=== PATIENT | female | born 1955 | race African-American/Black ===

== ENCOUNTER 2019-01-10 00:48 | Emergency (ER) | payer MEDICAID ==
[~2019-01-10] VITALS: Ht 170.2 cm; Wt 144.0 kg
[~2019-01-10 00:48] MED LIST: FLONASE; HUMALOG; LANTUS; LORA-250 PO; NORCO
[2019-01-10] MEDS ORDERED: CYCLOBENZAPRINE 10MG TABLET PO ONE (01:15)
[2019-01-10] MEDS ORDERED: OXYCODONE HCL 10MG TABLET SR 12HR PO ONE (02:00)
[2019-01-10] MEDS ORDERED: DIAZEPAM 5 MG TABLET PO ONE (06:00)
[2019-01-10 06:16] LABS: CLARITY URINE CLEAR (CLEAR); COLOR URINE YELLOW (YELLOW); KETONES URINE NEGATIVE (NEGATIVE); LEUKOCYTE ESTERASE URINE NEGATIVE (NEGATIVE); NITRITE URINE NEGATIVE (NEGATIVE); OCCULT BLOOD URINE 1+ (NEGATIVE); PH URINE 6.5 (4.5-8.0); PROTEIN URINE 4+ (NEGATIVE); SPECIFIC GRAVITY URINE 1.014 (1.005-1.030); UROBILINOGEN URINE 0.2 E.U./dL (0.2-1.0)
[2019-01-10 08:28] VITALS: BP 141/75
== END 2019-01-10 08:31 | disposition home or self-care (01) ==
LOC: ER 00:48
DX: M54.42 Lumbago with sciatica, left side (principal); E78.00 Pure hypercholesterolemia, unspecified; I10 Essential (primary) hypertension; E11.9 Type 2 diabetes mellitus without complications; Z90.710 Acquired absence of both cervix and uterus; Z98.890 Other specified postprocedural states; Z88.1 Allergy status to other antibiotic agents; Z91.013 Allergy to seafood; Z79.899 Other long term (current) drug therapy
CPT/HCPCS: 36415; 72100; 73502; 80048; 81003; 99284; Z7610

== ENCOUNTER 2019-01-22 18:05 | Emergency (ER) | payer MEDICARE, MEDICAID ==
[~2019-01-22] VITALS: Ht 170.2 cm; Wt 91.0 kg
[2019-01-22] MEDS ORDERED: INSULIN REGULAR (HUMULIN R) 300UNITS/3ML SUBCUT ONE (19:30)
[2019-01-22] MEDS ORDERED: OXYCODONE HCL 10MG TABLET SR 12HR PO ONE (22:15)
[2019-01-23] VITALS: BP 165/75
== END 2019-01-23 01:36 | disposition home or self-care (01) ==
LOC: ER 18:05
DX: R51 Headache (principal); E11.9 Type 2 diabetes mellitus without complications; E78.00 Pure hypercholesterolemia, unspecified; I10 Essential (primary) hypertension; Z90.710 Acquired absence of both cervix and uterus; Z88.5 Allergy status to narcotic agent; Z91.013 Allergy to seafood
CPT/HCPCS: 70450; 71045; 82962; 96372; 99284; J1815

== ENCOUNTER 2019-01-30 08:52 | Emergency (ER) | payer MEDICARE, MEDICAID ==
[~2019-01-30] VITALS: Ht 167.6 cm; Wt 82.0 kg
[2019-01-30] MEDS ORDERED: KETOROLAC 30MG/ML VIAL IV STA (10:17)
[2019-01-30 10:27] LABS: BASOPHILS % 1.2 % (0.0-2.0); EOSINOPHILS % 4.4 % (0.0-5.0); HEMATOCRIT. 36.3 % (36.0-48.0); HEMOGLOBIN. 11.2 g/dL (12.0-16.0); LYMPHOCYTES % 24.7 % (20.0-50.0); MEAN CORPUSCULAR HEMOGLOBIN 22.3 pg (28.0-32.0); MEAN CORPUSCULAR VOLUME 72.3 fL (81.0-99.0); MEAN PLATELET VOLUME 8.3 fl (7.4-10.4); MONOCYTES % 4.9 % (2.0-8.0); NEUTROPHILS % 64.8 % (40.0-76.0); PLATELET 233 x1000/uL (130-400); RED BLOOD CELL COUNT 5.01 mill/uL (4.2-5.4); RED CELL DISTRIBUTION WIDTH 22.5 % (11.6-14.6)
[2019-01-30] MEDS ORDERED: CYCLOBENZAPRINE 10MG TABLET PO ONE (10:30)
[2019-01-30 10:33] LABS: CHLORIDE 108 mEq/L (98-107)
[2019-01-30 11:01] LABS: CLARITY URINE CLEAR (CLEAR); COLOR URINE YELLOW (YELLOW); KETONES URINE NEGATIVE (NEGATIVE); LEUKOCYTE ESTERASE URINE NEGATIVE (NEGATIVE); NITRITE URINE NEGATIVE (NEGATIVE); OCCULT BLOOD URINE 1+ (NEGATIVE); PROTEIN URINE 3+ (NEGATIVE); SPECIFIC GRAVITY URINE 1.012 (1.005-1.030); UROBILINOGEN URINE 0.2 E.U./dL (0.2-1.0)
[2019-01-30 11:30] LABS: PLATELET ESTIMATE NORMAL
[2019-01-30] MEDS ORDERED: MORPHINE SULFATE 4 MG/ML CPJ (NOT FOR IM USE) IV ONE (11:30)
[2019-01-30] MEDS ORDERED: LOSARTAN POTASSIUM 50 MG TABLET PO ONE (11:30)
[2019-01-30 13:27] VITALS: BP 144/78
== END 2019-01-30 13:54 | disposition home or self-care (01) ==
LOC: ER 09:03
DX: M54.42 Lumbago with sciatica, left side (principal); N18.9 Chronic kidney disease, unspecified; E11.9 Type 2 diabetes mellitus without complications; E78.00 Pure hypercholesterolemia, unspecified; I10 Essential (primary) hypertension; Z90.710 Acquired absence of both cervix and uterus; Z88.5 Allergy status to narcotic agent; Z91.013 Allergy to seafood
CPT/HCPCS: 36415; 80053; 81003; 82962; 85025; 96374; 96375; 99283; J1885; J2270

== ENCOUNTER 2019-02-01 11:54 | Emergency (ER) | payer MEDICARE, MEDICAID ==
[~2019-02-01] VITALS: Ht 175.3 cm; Wt 120.0 kg
[2019-02-01 15:24] LABS: BASOPHILS % 1.1 % (0.0-2.0); EOSINOPHILS % 4.2 % (0.0-5.0); HEMATOCRIT. 35.6 % (36.0-48.0); LYMPHOCYTES % 28.4 % (20.0-50.0); MEAN CORPUSCULAR HEMOGLOBIN 22.2 pg (28.0-32.0); MEAN CORPUSCULAR VOLUME 71.9 fL (81.0-99.0); MEAN PLATELET VOLUME 8.2 fl (7.4-10.4); MONOCYTES % 6.7 % (2.0-8.0); NEUTROPHILS % 59.6 % (40.0-76.0); PLATELET 200 x1000/uL (130-400); RED BLOOD CELL COUNT 4.95 mill/uL (4.2-5.4); RED CELL DISTRIBUTION WIDTH 23.1 % (11.6-14.6)
[2019-02-01 15:29] LABS: CHLORIDE 109 mEq/L (98-107)
[2019-02-01 15:32] LABS: ETHANOL BLOOD < 10 mg/dL
[2019-02-01] MEDS: KETOROLAC 30MG/ML VIAL IV ONE ×2 (16:25→22:30)
[2019-02-01] MEDS: MORPHINE SULFATE 4 MG/ML CPJ (NOT FOR IM USE) IV ONE (16:25)
[2019-02-01 16:46] LABS: PROTHROMBIN TIME 10.7 sec (9.6-11.0)
[2019-02-01 16:54] LABS: CLARITY URINE CLEAR (CLEAR); COLOR URINE YELLOW (YELLOW); KETONES URINE NEGATIVE (NEGATIVE); LEUKOCYTE ESTERASE URINE NEGATIVE (NEGATIVE); NITRITE URINE NEGATIVE (NEGATIVE); OCCULT BLOOD URINE 2+ (NEGATIVE); PROTEIN URINE 4+ (NEGATIVE); SPECIFIC GRAVITY URINE 1.023 (1.005-1.030); UROBILINOGEN URINE 0.2 E.U./dL (0.2-1.0)
[2019-02-01 17:04] LABS: *AMPHETAMINES SCREEN URINE NEGATIVE (NEGATIVE); *BARBITURATES SCREEN URINE NEGATIVE (NEGATIVE); *BENZODIAZEPINES SCREEN URINE NEGATIVE (NEGATIVE); *COCAINE SCREEN URINE NEGATIVE (NEGATIVE); METHADONE URINE SCREEN NEGATIVE (NEGATIVE); OPIATES URINE SCREEN PRESUMTIVE POSITIVE (NEGATIVE)
[2019-02-01 17:05] LABS: PHENCYCLIDINE URINE SCREEN NEGATIVE (NEGATIVE)
[2019-02-01 17:12] LABS: CANNABINOID URINE SCREEN PRESUMTIVE POSITIVE (NEGATIVE)
[2019-02-01] MEDS: LOSARTAN POTASSIUM 50 MG TABLET PO ONE (22:30)
[2019-02-02] MEDS ORDERED: MORPHINE SULFATE 10 MG/ML CPJ IM ONE (07:30)
[2019-02-02] MEDS: OXYCODONE HCL/ACETAMINOPHEN 5/325MG TABLET PO ONE (07:58)
[2019-02-02 11:09] VITALS: BP 163/75
== END 2019-02-02 11:11 | disposition home or self-care (01) ==
LOC: ER 11:54
DX: M54.32 Sciatica, left side (principal); E11.9 Type 2 diabetes mellitus without complications; E78.00 Pure hypercholesterolemia, unspecified; I10 Essential (primary) hypertension; Z90.710 Acquired absence of both cervix and uterus; Z88.8 Allergy status to other drugs, medicaments and biological substances; Z79.4 Long term (current) use of insulin; Z79.899 Other long term (current) drug therapy
CPT/HCPCS: 36415; 80053; 80305; 80320; 81003; 85025; 85610; 93005; 96374; 96375; 96376; 99284; J1885; J2270; G0480

== ENCOUNTER 2019-02-05 23:54 | Emergency (ER) | payer MEDICARE, MEDICAID ==
[~2019-02-05] VITALS: Ht 170.2 cm; Wt 142.0 kg
[2019-02-06] MEDS ORDERED: HYDROCODONE/ACETAMINOPHEN 5/325MG TABLET PO STA ×2 (00:16→02:08)
[2019-02-06] MEDS ORDERED: KETOROLAC 60MG/2ML VIAL IM STA (00:16)
[2019-02-06 01:37] LABS: CLARITY URINE CLEAR (CLEAR); COLOR URINE YELLOW (YELLOW); KETONES URINE NEGATIVE (NEGATIVE); LEUKOCYTE ESTERASE URINE NEGATIVE (NEGATIVE); NITRITE URINE NEGATIVE (NEGATIVE); OCCULT BLOOD URINE 1+ (NEGATIVE); PH URINE 5.5 (4.5-8.0); PROTEIN URINE 4+ (NEGATIVE); SPECIFIC GRAVITY URINE 1.018 (1.005-1.030); UROBILINOGEN URINE 0.2 E.U./dL (0.2-1.0)
[2019-02-06 03:35] VITALS: BP 155/80
== END 2019-02-06 03:35 | disposition home or self-care (01) ==
LOC: ER 23:54
DX: M54.40 Lumbago with sciatica, unspecified side (principal); E11.9 Type 2 diabetes mellitus without complications; I10 Essential (primary) hypertension; Z90.710 Acquired absence of both cervix and uterus; Z88.5 Allergy status to narcotic agent; Z91.013 Allergy to seafood
CPT/HCPCS: 81003; 96372; 99283; J1885

== ENCOUNTER 2019-02-08 20:21 | Emergency (ER) | payer MEDICARE, MEDICAID ==
[~2019-02-08] VITALS: Ht 170.2 cm; Wt 143.0 kg
[2019-02-09] MEDS ORDERED: MORPHINE SULFATE 2 MG/ML CPJ (NOT FOR IM USE) IV ONE (03:15)
[2019-02-09 08:01] VITALS: BP 174/80
[2019-02-09 08:40] LABS: CLARITY URINE CLEAR (CLEAR); COLOR URINE YELLOW (YELLOW); KETONES URINE NEGATIVE (NEGATIVE); LEUKOCYTE ESTERASE URINE NEGATIVE (NEGATIVE); NITRITE URINE NEGATIVE (NEGATIVE); OCCULT BLOOD URINE TRACE (NEGATIVE); PH URINE 5.5 (4.5-8.0); PROTEIN URINE 3+ (NEGATIVE); UROBILINOGEN URINE 0.2 E.U./dL (0.2-1.0)
== END 2019-02-09 08:01 | disposition home or self-care (01) ==
LOC: ER 20:21
DX: M54.42 Lumbago with sciatica, left side (principal); I10 Essential (primary) hypertension; E11.9 Type 2 diabetes mellitus without complications
CPT/HCPCS: 73630; 81003; 93971; 96374; 99284; J2270

== ENCOUNTER 2019-02-10 10:07 | Emergency (ER) | payer MEDICARE, MEDICAID ==
[~2019-02-10] VITALS: Ht 170.2 cm; Wt 134.0 kg
[2019-02-10] MEDS ORDERED: ONDANSETRON 4MG ODT PO ONE (11:15)
[2019-02-10] MEDS ORDERED: MORPHINE SULFATE 10 MG/ML CPJ IM ONE (11:15)
[2019-02-10] MEDS ORDERED: POLYETHYLENE GLYCOL 3350 (17GM) 1 DOSE PACK PO ONE (12:15)
[2019-02-10 19:35] VITALS: BP 144/79
== END 2019-02-10 19:57 | disposition home or self-care (01) ==
LOC: ER 10:07
DX: M54.42 Lumbago with sciatica, left side (principal); K59.00 Constipation, unspecified; Z59.0 Homelessness
CPT/HCPCS: 96372; 99283; J2270; Q0162

== ENCOUNTER 2019-03-03 12:32 | Emergency (ER) | payer MEDICARE, MEDICAID ==
[~2019-03-03] VITALS: Ht 167.6 cm; Wt 140.0 kg
[2019-03-03] MEDS ORDERED: MORPHINE SULFATE 4 MG/ML CPJ (NOT FOR IM USE) IV STA (13:03)
[2019-03-03] MEDS ORDERED: KETOROLAC 30MG/ML VIAL IV STA (13:03)
[2019-03-03] MEDS ORDERED: ONDANSETRON HCL 4MG/2ML INJ IV STA (13:03)
[2019-03-03] MEDS ORDERED: SODIUM CHLORIDE 0.9% 1,000 ML IV ONE (13:03)
[2019-03-03 13:47] VITALS: BP 151/96
[2019-03-03] MEDS ORDERED: HYDRALAZINE 20MG/ML VIAL IV ONE (15:30)
== END 2019-03-03 18:06 | disposition home or self-care (01) ==
LOC: ER 12:32
DX: M54.40 Lumbago with sciatica, unspecified side (principal); I10 Essential (primary) hypertension; M48.00 Spinal stenosis, site unspecified
CPT/HCPCS: 72131; 96374; 96375; 99284; J0360; J1885; J2270; J2405; J7030

== ENCOUNTER 2019-03-09 15:06 | Inpatient (IN) | payer MEDICARE, MEDICAID ==
[~2019-03-09] VITALS: Ht 160 cm; Wt 141.5 kg
[2019-03-09] MEDS ORDERED: MORPHINE SULFATE 4 MG/ML CPJ (NOT FOR IM USE) IV ONE (16:45)
[2019-03-09] MEDS ORDERED: CLONIDINE 0.2MG TABLET PO ONE (16:45)
[2019-03-09] MEDS ORDERED: KETOROLAC 30MG/ML VIAL IV ONE (16:45)
[2019-03-09] MEDS ORDERED: SODIUM CHLORIDE 0.9% 500 ML IV ONE (16:45)
[2019-03-09 17:15] LABS: BASOPHILS % 0.3 % (0.0-2.0); EOSINOPHILS % 3.8 % (0.0-5.0); HEMATOCRIT. 34.3 % (36.0-48.0); HEMOGLOBIN. 10.8 g/dL (12.0-16.0); LYMPHOCYTES % 21.8 % (20.0-50.0); MEAN CORPUSCULAR HEMOGLOBIN 22.7 pg (28.0-32.0); MEAN CORPUSCULAR VOLUME 72.1 fL (81.0-99.0); MEAN PLATELET VOLUME 8.5 fl (7.4-10.4); MONOCYTES % 6.3 % (2.0-8.0); NEUTROPHILS % 67.8 % (40.0-76.0); PLATELET 196 x1000/uL (130-400); RED BLOOD CELL COUNT 4.75 mill/uL (4.2-5.4); RED CELL DISTRIBUTION WIDTH 21.7 % (11.6-14.6)
[2019-03-09 17:16] LABS: CHLORIDE 105 mEq/L (98-107)
[2019-03-09] MEDS ORDERED: ONDANSETRON HCL 4MG/2ML INJ IV PRN (21:15)
[2019-03-09] MEDS: HYDROCODONE/ACETAMINOPHEN 5/325MG TABLET PO PRN (22:11)
[2019-03-10] MEDS: LORAZEPAM 0.5MG TABLET PO PRN (03:38)
[2019-03-10 04:00] VITALS: BP 145/59
[2019-03-10] MEDS ORDERED: DEXTROSE 50% WATER 50ML SYRINGE IV PRN (04:30)
[2019-03-10 04:43] VITALS: BP 145/59
[2019-03-10] MEDS: BLOOD SUGAR DIAGNOSTIC STRIP TEST SCH ×4 (06:26→20:42)
[2019-03-10] MEDS: INSULIN LISPRO 100 UNITS/ML SUBCUT SCH ×4 (06:56→20:47)
[2019-03-10 08:00] VITALS: BP 161/88
[2019-03-10] MEDS: FOLIC ACID 1MG TABLET PO SCH (08:51)
[2019-03-10] MEDS: THIAMINE HCL 100MG TABLET PO SCH (08:51)
[2019-03-10] MEDS: ASPIRIN 81MG EC TABLET PO SCH (08:51)
[2019-03-10] MEDS ORDERED: ENOXAPARIN 30MG/0.3ML SYR SUBCUT SCH (09:00)
[2019-03-10 09:04] LABS: BASOPHILS % 0.7 % (0.0-2.0); EOSINOPHILS % 3.7 % (0.0-5.0); HEMATOCRIT. 34.1 % (36.0-48.0); HEMOGLOBIN. 10.6 g/dL (12.0-16.0); LYMPHOCYTES % 32.4 % (20.0-50.0); MEAN CORPUSCULAR HEMOGLOBIN 22.5 pg (28.0-32.0); MEAN CORPUSCULAR VOLUME 72.4 fL (81.0-99.0); MEAN PLATELET VOLUME 8.1 fl (7.4-10.4); MONOCYTES % 8.2 % (2.0-8.0); PLATELET 190 x1000/uL (130-400); RED BLOOD CELL COUNT 4.72 mill/uL (4.2-5.4); RED CELL DISTRIBUTION WIDTH 21.9 % (11.6-14.6)
[2019-03-10 09:13] LABS: PHOSPHORUS 3.1 mg/dL (2.5-4.9)
[2019-03-10] MEDS: CLONIDINE 0.1MG TABLET PO PRN ×2 (10:38→20:43)
[2019-03-10] MEDS: HYDROCODONE/ACETAMINOPHEN 5/325MG TABLET PO PRN ×2 (10:38→20:43)
[2019-03-10] MEDS ORDERED: INSULIN GLARGINE UD 100 UNITS/ML SYR SUBCUT NR (11:30)
[2019-03-10 12:00] VITALS: BP 116/72
[2019-03-10 16:00] VITALS: BP 149/94
[2019-03-10] MEDS: MORPHINE SULFATE 2 MG/ML CPJ (NOT FOR IM USE) IV PRN (17:41)
[2019-03-10] MEDS: SODIUM CHLORIDE 0.45% 1,000 ML IV SCH (18:06)
[2019-03-10 19:42] LABS: CLARITY URINE CLEAR (CLEAR); COLOR URINE YELLOW (YELLOW); KETONES URINE NEGATIVE (NEGATIVE); LEUKOCYTE ESTERASE URINE NEGATIVE (NEGATIVE); NITRITE URINE NEGATIVE (NEGATIVE); OCCULT BLOOD URINE 1+ (NEGATIVE); PH URINE 6.5 (4.5-8.0); PROTEIN URINE 4+ (NEGATIVE); SPECIFIC GRAVITY URINE 1.022 (1.005-1.030); UROBILINOGEN URINE 0.2 E.U./dL (0.2-1.0)
[2019-03-10 20:00] VITALS: BP 174/95
[2019-03-10 20:03] LABS: *BARBITURATES SCREEN URINE NEGATIVE (NEGATIVE); CANNABINOID URINE SCREEN PRESUMTIVE POSITIVE (NEGATIVE)
[2019-03-10 20:04] LABS: *AMPHETAMINES SCREEN URINE NEGATIVE (NEGATIVE); *BENZODIAZEPINES SCREEN URINE NEGATIVE (NEGATIVE); *COCAINE SCREEN URINE NEGATIVE (NEGATIVE); METHADONE URINE SCREEN NEGATIVE (NEGATIVE); OPIATES URINE SCREEN PRESUMTIVE POSITIVE (NEGATIVE); PHENCYCLIDINE URINE SCREEN NEGATIVE (NEGATIVE)
[2019-03-11] VITALS: BP_SYST 137; BP_SYST 154; BP_SYST 185; BP_DIAS 83; BP_DIAS 87; BP_DIAS 89
[2019-03-11 03:56] LABS: BASOPHILS % 1.2 % (0.0-2.0); EOSINOPHILS % 3.8 % (0.0-5.0); HEMATOCRIT. 33.2 % (36.0-48.0); HEMOGLOBIN. 10.3 g/dL (12.0-16.0); LYMPHOCYTES % 27.7 % (20.0-50.0); MEAN CORPUSCULAR HEMOGLOBIN 22.3 pg (28.0-32.0); MEAN CORPUSCULAR VOLUME 71.9 fL (81.0-99.0); MONOCYTES % 7.3 % (2.0-8.0); PLATELET 164 x1000/uL (130-400); RED BLOOD CELL COUNT 4.61 mill/uL (4.2-5.4); RED CELL DISTRIBUTION WIDTH 22.1 % (11.6-14.6)
[2019-03-11 04:00] VITALS: BP 145/81
[2019-03-11 04:12] LABS: CHLORIDE 103 mEq/L (98-107)
[2019-03-11] MEDS: SODIUM CHLORIDE 0.45% 1,000 ML IV SCH (05:52)
[2019-03-11] MEDS: BLOOD SUGAR DIAGNOSTIC STRIP TEST SCH ×4 (06:39→20:38)
[2019-03-11] MEDS: INSULIN LISPRO 100 UNITS/ML SUBCUT SCH ×4 (06:45→21:17)
[2019-03-11] MEDS: MORPHINE SULFATE 2 MG/ML CPJ (NOT FOR IM USE) IV PRN ×2 (06:59→20:47)
[2019-03-11] MEDS: DIPHENHYDRAMINE 25MG CAPSULE PO PRN (07:17)
[2019-03-11 08:00] VITALS: BP_SYST 137; BP_SYST 143; BP_SYST 159; BP_DIAS 78; BP_DIAS 79; BP_DIAS 84
[2019-03-11] MEDS: FOLIC ACID 1MG TABLET PO SCH (08:33)
[2019-03-11] MEDS: THIAMINE HCL 100MG TABLET PO SCH (08:33)
[2019-03-11] MEDS: ASPIRIN 81MG EC TABLET PO SCH (08:33)
[2019-03-11 12:00] VITALS: BP 144/68
[2019-03-11 16:00] VITALS: BP 170/78
[2019-03-11] MEDS: CLONIDINE 0.1MG TABLET PO PRN (17:15)
[2019-03-11 20:00] VITALS: BP_SYST 135; BP_SYST 140; BP_SYST 147; BP_DIAS 71; BP_DIAS 72; BP_DIAS 81
[2019-03-11] MEDS: LACTULOSE 20G/30ML UDC PO SCH (21:17)
[2019-03-12] VITALS (7 sets, daily range): BP systolic 139–191; BP diastolic 55–85
[2019-03-12] MEDS: DIPHENHYDRAMINE 25MG CAPSULE PO PRN (01:18)
[2019-03-12] MEDS: LORAZEPAM 0.5MG TABLET PO PRN (01:18)
[2019-03-12] MEDS: BLOOD SUGAR DIAGNOSTIC STRIP TEST SCH ×4 (05:47→21:00)
[2019-03-12] MEDS: LACTULOSE 20G/30ML UDC PO SCH ×3 (06:00→13:14)
[2019-03-12] MEDS: INSULIN LISPRO 100 UNITS/ML SUBCUT SCH ×4 (06:17→22:06)
[2019-03-12 07:51] LABS: BASOPHILS % 0.7 % (0.0-2.0); EOSINOPHILS % 4.6 % (0.0-5.0); HEMOGLOBIN. 10.1 g/dL (12.0-16.0); LYMPHOCYTES % 31.3 % (20.0-50.0); MEAN CORPUSCULAR HEMOGLOBIN 22.5 pg (28.0-32.0); MEAN CORPUSCULAR VOLUME 71.1 fL (81.0-99.0); MEAN PLATELET VOLUME 8.2 fl (7.4-10.4); NEUTROPHILS % 55.4 % (40.0-76.0); PLATELET 182 x1000/uL (130-400); RED CELL DISTRIBUTION WIDTH 22.2 % (11.6-14.6)
[2019-03-12] MEDS: FOLIC ACID 1MG TABLET PO SCH (08:52)
[2019-03-12] MEDS: ASPIRIN 81MG EC TABLET PO SCH (08:52)
[2019-03-12] MEDS: THIAMINE HCL 100MG TABLET PO SCH (08:52)
[2019-03-12] MEDS: CLONIDINE 0.1MG TABLET PO PRN (08:52)
[2019-03-12] MEDS: MORPHINE SULFATE 2 MG/ML CPJ (NOT FOR IM USE) IV PRN (13:20)
[2019-03-12] MEDS: AMLODIPINE 5MG TABLET PO SCH (22:05)
[2019-03-12] MEDS: INSULIN GLARGINE UD 100 UNITS/ML SYR SUBCUT SCH (22:14)
[2019-03-13] VITALS (7 sets, daily range): BP systolic 128–177; BP diastolic 68–94
[2019-03-13] MEDS: HYDROCODONE/ACETAMINOPHEN 5/325MG TABLET PO PRN (00:57)
[2019-03-13] MEDS: DIPHENHYDRAMINE 25MG CAPSULE PO PRN (04:02)
[2019-03-13] MEDS: BLOOD SUGAR DIAGNOSTIC STRIP TEST SCH ×4 (05:43→20:43)
[2019-03-13] MEDS: INSULIN LISPRO 100 UNITS/ML SUBCUT SCH ×4 (06:21→21:29)
[2019-03-13 06:56] LABS: BASOPHILS % 0.8 % (0.0-2.0); EOSINOPHILS % 3.6 % (0.0-5.0); HEMATOCRIT. 35.3 % (36.0-48.0); HEMOGLOBIN. 11.1 g/dL (12.0-16.0); LYMPHOCYTES % 30.6 % (20.0-50.0); MEAN CORPUSCULAR HEMOGLOBIN 22.6 pg (28.0-32.0); MEAN PLATELET VOLUME 8.5 fl (7.4-10.4); MONOCYTES % 6.1 % (2.0-8.0); NEUTROPHILS % 58.9 % (40.0-76.0); PLATELET 202 x1000/uL (130-400); RED BLOOD CELL COUNT 4.89 mill/uL (4.2-5.4); RED CELL DISTRIBUTION WIDTH 22.2 % (11.6-14.6)
[2019-03-13] MEDS: ASPIRIN 81MG EC TABLET PO SCH (08:41)
[2019-03-13] MEDS: AMLODIPINE 5MG TABLET PO SCH ×2 (08:42→21:30)
[2019-03-13] MEDS: FOLIC ACID 1MG TABLET PO SCH (08:42)
[2019-03-13] MEDS: THIAMINE HCL 100MG TABLET PO SCH (08:42)
[2019-03-13] MEDS: INSULIN GLARGINE UD 100 UNITS/ML SYR SUBCUT SCH ×2 (09:03→21:30)
[2019-03-13] MEDS ORDERED: NA PHOS,M-B/NA PHOS,DI-BA ENEMA 118ML PR ONE (11:15)
[2019-03-13 14:02] LABS: PLATELET ESTIMATE NORMAL
[2019-03-13] MEDS: CLONIDINE 0.1MG TABLET PO PRN (21:30)
[2019-03-13] MEDS: MORPHINE SULFATE 2 MG/ML CPJ (NOT FOR IM USE) IV PRN (21:41)
[2019-03-14] VITALS (7 sets, daily range): BP systolic 157–168; BP diastolic 69–84
[2019-03-14] MEDS: BLOOD SUGAR DIAGNOSTIC STRIP TEST SCH ×3 (06:00→17:41)
[2019-03-14] MEDS: CLONIDINE 0.1MG TABLET PO PRN (06:01)
[2019-03-14] MEDS: INSULIN LISPRO 100 UNITS/ML SUBCUT SCH ×3 (06:06→17:45)
[2019-03-14] MEDS: FOLIC ACID 1MG TABLET PO SCH (09:58)
[2019-03-14] MEDS: AMLODIPINE 5MG TABLET PO SCH (09:58)
[2019-03-14] MEDS: ASPIRIN 81MG EC TABLET PO SCH (09:58)
[2019-03-14] MEDS: THIAMINE HCL 100MG TABLET PO SCH (09:58)
[2019-03-14] MEDS: LORAZEPAM 0.5MG TABLET PO PRN (09:58)
[2019-03-14] MEDS: INSULIN GLARGINE UD 100 UNITS/ML SYR SUBCUT SCH (09:59)
[2019-03-14] MEDS: MORPHINE SULFATE 2 MG/ML CPJ (NOT FOR IM USE) IV PRN (12:29)
== END 2019-03-14 18:15 | DRG 73 ==
LOC: ER 15:06 → 6EST 19:59 → EDBEDREQTM 20:22 → EDBEDREQ 20:22 → ENRESERV 03-10 02:05 → 8WST 03-10 03:29
PROVIDERS: ADMIT Internal Medicine Nephrology; ATTEND Internal Medicine Nephrology
DX: G90.8 Other disorders of autonomic nervous system (principal); E43 Unspecified severe protein-calorie malnutrition; I13.0 Hypertensive heart and chronic kidney disease with heart failure and stage 1 through stage 4 chronic kidney disease, or unspecified chronic kidney disease; N17.9 Acute kidney failure, unspecified; I50.32 Chronic diastolic (congestive) heart failure; Z68.43 Body mass index [BMI] 50.0-59.9, adult; E11.22 Type 2 diabetes mellitus with diabetic chronic kidney disease; D64.9 Anemia, unspecified; E11.65 Type 2 diabetes mellitus with hyperglycemia; W18.39XA Other fall on same level, initial encounter; N18.3 Chronic kidney disease, stage 3 (moderate); E66.01 Morbid (severe) obesity due to excess calories; S70.01XA Contusion of right hip, initial encounter; M54.30 Sciatica, unspecified side; Z88.8 Allergy status to other drugs, medicaments and biological substances; Z91.013 Allergy to seafood; Z79.4 Long term (current) use of insulin; Z79.899 Other long term (current) drug therapy; Z90.710 Acquired absence of both cervix and uterus; Z71.3 Dietary counseling and surveillance; Y93.89 Activity, other specified; Y92.89 Other specified places as the place of occurrence of the external cause; Y99.8 Other external cause status
CPT/HCPCS: 36415; 73502; 80048; 80305; 82570; 82962; 83735; 84100; 84156; 84443; 84484; 93005; 93306; 93970; 96361; 96374; 97116; 97162; 97530; 99285; J1650; J1815; J2270; J7040; Q0163

== ENCOUNTER 2019-09-18 19:29 | Inpatient (IN) | payer MEDICARE, MEDICAID ==
[~2019-09-18] VITALS: Ht 170.2 cm; Wt 154.4 kg
[2019-09-18 23:54] LABS: HEMATOCRIT. 31.9 % (36.0-48.0); HEMOGLOBIN. 9.7 g/dL (12.0-16.0); MEAN CORPUSCULAR HEMOGLOBIN 22.3 pg (28.0-32.0); MEAN CORPUSCULAR VOLUME 73.1 fL (81.0-99.0); PLATELET 226 x1000/uL (130-400); RED BLOOD CELL COUNT 4.37 mill/uL (4.2-5.4); RED CELL DISTRIBUTION WIDTH 21.9 % (11.6-14.6)
[2019-09-18 23:59] LABS: CHLORIDE 111 mEq/L (98-107)
[2019-09-19] MEDS ORDERED: FUROSEMIDE 40MG/4ML VIAL IV ONE (03:00)
[2019-09-19 04:24] LABS: PLATELET ESTIMATE NORMAL
[2019-09-19] MEDS: CLONIDINE 0.1MG TABLET PO PRN ×2 (06:46→11:29)
[2019-09-19] MEDS ORDERED: DEXTROSE 50% WATER 50ML SYRINGE IV PRN (10:45)
[2019-09-19] MEDS ORDERED: CLONIDINE 0.1MG TABLET PO PRN (10:45)
[2019-09-19] MEDS ORDERED: BENZONATATE 100MG CAPSULE PO PRN (10:45)
[2019-09-19] MEDS: FUROSEMIDE 40MG/4ML VIAL IVP SCH (11:29)
[2019-09-19] MEDS ORDERED: AMLODIPINE 10MG TABLET PO SCH (11:30)
[2019-09-19] MEDS: GUAIFENESIN 600MG ER TABLET PO SCH (11:42)
[2019-09-19] MEDS ORDERED: ENOXAPARIN 40MG/0.4ML SYR SUBCUT SCH (12:00)
[2019-09-19] MEDS: BLOOD SUGAR DIAGNOSTIC STRIP TEST SCH ×2 (13:00→21:00)
[2019-09-19] MEDS: INSULIN LISPRO 100 UNITS/ML SUBCUT SCH (13:20)
[2019-09-19 20:31] VITALS: BP 159/58
[2019-09-20] MEDS: DILTIAZEM HCL 60MG TABLET PO SCH ×3 (00:11→12:18)
[2019-09-20] MEDS: GUAIFENESIN 600MG ER TABLET PO SCH ×3 (00:11→21:20)
[2019-09-20] MEDS: ENOXAPARIN 40MG/0.4ML SYR SUBCUT SCH ×3 (00:12→21:19)
[2019-09-20] MEDS: INSULIN LISPRO 100 UNITS/ML SUBCUT SCH ×6 (00:13→21:17)
[2019-09-20 00:32] VITALS: BP 128/74
[2019-09-20] MEDS: IPRATROPIUM/ALBUTEROL 0.5-3(2.5)MG/3ML NEB HHN PRN (02:13)
[2019-09-20 04:45] VITALS: BP 149/54
[2019-09-20] MEDS ORDERED: AMLO5TAB88 MT (05:32)
[2019-09-20] MEDS ORDERED: TIZA2CAP7 MT (05:32)
[2019-09-20] MEDS ORDERED: FOLI-43 MT (05:32)
[2019-09-20] MEDS ORDERED: GABA-529 PO (05:32)
[2019-09-20] MEDS ORDERED: ASPI-1497 MT (05:32)
[2019-09-20] MEDS: BLOOD SUGAR DIAGNOSTIC STRIP TEST SCH ×4 (07:20→21:19)
[2019-09-20 08:00] VITALS: BP 141/63
[2019-09-20] MEDS: FUROSEMIDE 40MG/4ML VIAL IVP SCH (09:16)
[2019-09-20 10:58] LABS: BASOPHILS % 0.7 % (0.0-2.0); EOSINOPHILS % 3.8 % (0.0-5.0); HEMATOCRIT. 30.5 % (36.0-48.0); HEMOGLOBIN. 9.2 g/dL (12.0-16.0); LYMPHOCYTES % 16.8 % (20.0-50.0); MEAN CORPUSCULAR HEMOGLOBIN 22.3 pg (28.0-32.0); MEAN CORPUSCULAR VOLUME 73.9 fL (81.0-99.0); MEAN PLATELET VOLUME 8.1 fl (7.4-10.4); MONOCYTES % 5.4 % (2.0-8.0); NEUTROPHILS % 73.3 % (40.0-76.0); PLATELET 206 x1000/uL (130-400); RED BLOOD CELL COUNT 4.13 mill/uL (4.2-5.4); RED CELL DISTRIBUTION WIDTH 21.4 % (11.6-14.6)
[2019-09-20 12:00] VITALS: BP 160/6
[2019-09-20 16:00] VITALS: BP 155/75
[2019-09-20] MEDS: DILTIAZEM HCL 90MG TABLET PO SCH ×2 (18:05→21:20)
[2019-09-20 20:00] VITALS: BP 122/50
[2019-09-20] MEDS: INSULIN GLARGINE UD 100 UNITS/ML SYR SUBCUT SCH (21:18)
[2019-09-20] MEDS: ONDANSETRON HCL 4MG/2ML INJ IV PRN (22:48)
[2019-09-21] VITALS (7 sets, daily range): BP systolic 122–163; BP diastolic 52–64
[2019-09-21] MEDS: DILTIAZEM HCL 90MG TABLET PO SCH ×3 (05:30→18:20)
[2019-09-21] MEDS: BLOOD SUGAR DIAGNOSTIC STRIP TEST SCH ×4 (05:30→21:28)
[2019-09-21] MEDS: ONDANSETRON HCL 4MG/2ML INJ IV PRN (05:32)
[2019-09-21 08:02] LABS: EOSINOPHILS % 3.4 % (0.0-5.0); HEMATOCRIT. 28.3 % (36.0-48.0); HEMOGLOBIN. 8.8 g/dL (12.0-16.0); LYMPHOCYTES % 21.8 % (20.0-50.0); MEAN CORPUSCULAR HEMOGLOBIN 22.7 pg (28.0-32.0); MEAN CORPUSCULAR VOLUME 73.2 fL (81.0-99.0); MEAN PLATELET VOLUME 8.2 fl (7.4-10.4); MONOCYTES % 7.1 % (2.0-8.0); NEUTROPHILS % 66.7 % (40.0-76.0); PLATELET 191 x1000/uL (130-400); RED BLOOD CELL COUNT 3.86 mill/uL (4.2-5.4); RED CELL DISTRIBUTION WIDTH 21.5 % (11.6-14.6)
[2019-09-21] MEDS: INSULIN LISPRO 100 UNITS/ML SUBCUT SCH ×4 (08:43→21:28)
[2019-09-21] MEDS: ENOXAPARIN 40MG/0.4ML SYR SUBCUT SCH ×2 (08:46→21:27)
[2019-09-21] MEDS: FUROSEMIDE 40MG/4ML VIAL IVP SCH (08:46)
[2019-09-21] MEDS: GUAIFENESIN 600MG ER TABLET PO SCH ×2 (08:46→21:28)
[2019-09-21] MEDS: INSULIN GLARGINE UD 100 UNITS/ML SYR SUBCUT SCH ×2 (10:27→21:28)
[2019-09-21] MEDS: CLONIDINE 0.1MG TABLET PO PRN (21:28)
[2019-09-21] MEDS: IPRATROPIUM/ALBUTEROL 0.5-3(2.5)MG/3ML NEB HHN PRN (21:57)
[2019-09-22] VITALS: BP 125/76
[2019-09-22] MEDS: DILTIAZEM HCL 90MG TABLET PO SCH ×3 (01:29→12:56)
[2019-09-22] MEDS: IPRATROPIUM/ALBUTEROL 0.5-3(2.5)MG/3ML NEB HHN PRN ×3 (02:28→11:41)
[2019-09-22] MEDS: ONDANSETRON HCL 4MG/2ML INJ IV PRN (03:39)
[2019-09-22 04:00] VITALS: BP 170/62
[2019-09-22] MEDS: BLOOD SUGAR DIAGNOSTIC STRIP TEST SCH ×2 (06:30→12:47)
[2019-09-22] MEDS: INSULIN LISPRO 100 UNITS/ML SUBCUT SCH ×2 (07:50→12:59)
[2019-09-22 08:00] VITALS: BP 166/61
[2019-09-22] MEDS: FUROSEMIDE 40MG/4ML VIAL IVP SCH (09:44)
[2019-09-22] MEDS: ENOXAPARIN 40MG/0.4ML SYR SUBCUT SCH (09:44)
[2019-09-22] MEDS: GUAIFENESIN 600MG ER TABLET PO SCH (09:44)
[2019-09-22] MEDS: CLONIDINE 0.1MG TABLET PO PRN (10:34)
[2019-09-22] MEDS: INSULIN GLARGINE UD 100 UNITS/ML SYR SUBCUT SCH (10:39)
[2019-09-22 12:00] VITALS: BP 155/96
== END 2019-09-22 15:10 | DRG 291 ==
LOC: ER 19:29 → 6WST 09-19 01:16 → EDBEDREQTM 09-19 01:18 → EDBEDREQ 09-19 01:18 → ENRESERV 09-19 19:43 → 6WST 09-21 20:43
PROVIDERS: ADMIT Internal Medicine Nephrology; ATTEND Internal Medicine
DX: I13.0 Hypertensive heart and chronic kidney disease with heart failure and stage 1 through stage 4 chronic kidney disease, or unspecified chronic kidney disease (principal); I50.33 Acute on chronic diastolic (congestive) heart failure; E43 Unspecified severe protein-calorie malnutrition; N18.4 Chronic kidney disease, stage 4 (severe); J98.11 Atelectasis; Z68.43 Body mass index [BMI] 50.0-59.9, adult; J06.9 Acute upper respiratory infection, unspecified; J40 Bronchitis, not specified as acute or chronic; D64.9 Anemia, unspecified; E66.01 Morbid (severe) obesity due to excess calories; E87.8 Other disorders of electrolyte and fluid balance, not elsewhere classified; F12.90 Cannabis use, unspecified, uncomplicated; E11.22 Type 2 diabetes mellitus with diabetic chronic kidney disease; G47.30 Sleep apnea, unspecified; Z88.8 Allergy status to other drugs, medicaments and biological substances; Z91.013 Allergy to seafood; Z71.3 Dietary counseling and surveillance; Z79.899 Other long term (current) drug therapy
CPT/HCPCS: 36415; 71045; 71250; 80048; 80053; 82962; 83605; 83880; 84484; 85025; 93005; 93306; 94640; 96372; 96374; 96376; 97116; 97162; 99285; J1650; J1815; J1940; J2405; J7620

== ENCOUNTER 2021-07-05 01:27 | Emergency (ER) | payer MEDICARE, MEDICAID ==
[~2021-07-05] VITALS: Ht 170.2 cm; Wt 136.0 kg
[~2021-07-05 01:27] MED LIST changes: +AMLO5TAB88 MT; +ASPI-1497 MT; +FOLI-43 MT; +GABA-529 PO; +TIZA2CAP7 MT
[2021-07-05 02:00] VITALS: BP 120/84
== END 2021-07-05 02:45 | disposition home or self-care (01) ==
LOC: ER 01:49
DX: K59.00 Constipation, unspecified (principal); I11.0 Hypertensive heart disease with heart failure; I50.9 Heart failure, unspecified; E11.9 Type 2 diabetes mellitus without complications; J44.1 Chronic obstructive pulmonary disease with (acute) exacerbation; Z88.5 Allergy status to narcotic agent; Z91.018 Allergy to other foods; Z79.82 Long term (current) use of aspirin; Z79.899 Other long term (current) drug therapy
CPT/HCPCS: 93005; 99283

== ENCOUNTER 2021-07-10 22:48 | Emergency (ER) | payer MEDICARE, MEDICAID ==
[~2021-07-10] VITALS: Ht 170.2 cm; Wt 112.0 kg
[2021-07-10] MEDS ORDERED: NA PHOS,M-B/NA PHOS,DI-BA ENEMA 118ML PR ONE (23:15)
[2021-07-11] MEDS ORDERED: NA PHOS,M-B/NA PHOS,DI-BA ENEMA 118ML PR NR
[2021-07-11] MEDS ORDERED: DOCU-138 MT (00:26)
[2021-07-11] MEDS ORDERED: NA PHOS,M-B/NA PHOS,DI-BA ENEMA 118ML PR ONE (00:30)
[2021-07-11 11:55] VITALS: BP 165/87
== END 2021-07-11 12:27 | disposition home or self-care (01) ==
LOC: ER 22:48
DX: K59.00 Constipation, unspecified (principal); I13.2 Hypertensive heart and chronic kidney disease with heart failure and with stage 5 chronic kidney disease, or end stage renal disease; N18.6 End stage renal disease; I50.9 Heart failure, unspecified; E11.22 Type 2 diabetes mellitus with diabetic chronic kidney disease; Z99.2 Dependence on renal dialysis; J44.9 Chronic obstructive pulmonary disease, unspecified; J45.909 Unspecified asthma, uncomplicated; Z79.84 Long term (current) use of oral hypoglycemic drugs; Z79.899 Other long term (current) drug therapy
CPT/HCPCS: 99283

== ENCOUNTER 2022-06-25 16:02 | Inpatient (IN) | payer MEDICARE, MEDICAID ==
[~2022-06-25] VITALS: Ht 170.2 cm; Wt 137.9 kg
[~2022-06-25 16:02] MED LIST changes: +DOCU-138 MT
[2022-06-25 18:27] LABS: EOSINOPHILS % 3.5 % (0.0-5.0); HEMATOCRIT. 41.1 % (36.0-48.0); HEMOGLOBIN. 12.9 g/dL (12.0-16.0); LYMPHOCYTES % 19.3 % (20.0-50.0); MEAN CORPUSCULAR HEMOGLOBIN 26.3 pg (28.0-32.0); MEAN CORPUSCULAR VOLUME 83.7 fL (81.0-99.0); MONOCYTES % 6.7 % (2.0-8.0); NEUTROPHILS % 69.5 % (40.0-76.0); RED BLOOD CELL COUNT 4.91 mill/uL (4.2-5.4); RED CELL DISTRIBUTION WIDTH 22.2 % (11.6-14.6)
[2022-06-25 18:29] LABS: CHLORIDE 104 mEq/L (98-107)
[2022-06-25 19:04] LABS: MEAN PLATELET VOLUME 8.3 fl (7.4-10.4); PLATELET 177 x1000/uL (130-400)
[2022-06-25 19:05] LABS: PLATELET ESTIMATE NORMAL
[2022-06-25] MEDS ORDERED: AMLODIPINE 5MG TABLET PO ONE (22:30)
[2022-06-25] MEDS ORDERED: LORAZEPAM 2MG/ML CPJ IV PRN (23:15)
[2022-06-25] MEDS ORDERED: ONDANSETRON HCL 4MG/2ML INJ IV PRN (23:15)
[2022-06-25] MEDS ORDERED: ACETAMINOPHEN 325MG TABLET PO PRN (23:15)
[2022-06-25] MEDS ORDERED: DOCUSATE SODIUM 100MG CAPSULE PO PRN (23:15)
[2022-06-25] MEDS ORDERED: HYDROCODONE/APAP 7.5/325MG 1 TAB TABLET PO PRN (23:15)
[2022-06-26 00:30] VITALS: BP 210/90
[2022-06-26] MEDS: CLONIDINE 0.1MG TABLET PO PRN ×2 (00:43→07:57)
[2022-06-26] MEDS ORDERED: DEXTROSE 50% WATER 50ML SYRINGE IV PRN (02:45)
[2022-06-26] MEDS: BLOOD SUGAR DIAGNOSTIC STRIP TEST SCH ×4 (06:50→21:53)
[2022-06-26 07:20] LABS: BASOPHILS % 0.8 % (0.0-2.0); EOSINOPHILS % 4.1 % (0.0-5.0); HEMATOCRIT. 40.7 % (36.0-48.0); HEMOGLOBIN. 12.6 g/dL (12.0-16.0); LYMPHOCYTES % 18.2 % (20.0-50.0); MEAN CORPUSCULAR HEMOGLOBIN 26.1 pg (28.0-32.0); MEAN CORPUSCULAR VOLUME 84.4 fL (81.0-99.0); MEAN PLATELET VOLUME 7.8 fl (7.4-10.4); MONOCYTES % 7.9 % (2.0-8.0); PLATELET 144 x1000/uL (130-400); RED BLOOD CELL COUNT 4.83 mill/uL (4.2-5.4); RED CELL DISTRIBUTION WIDTH 22.1 % (11.6-14.6)
[2022-06-26 08:00] VITALS: BP 218/97
[2022-06-26 08:13] LABS: PHOSPHORUS 3.6 mg/dL (2.5-4.9)
[2022-06-26] MEDS: ASPIRIN 81MG EC TABLET PO SCH (08:29)
[2022-06-26] MEDS: THIAMINE HCL 100MG TABLET PO SCH (08:29)
[2022-06-26] MEDS: ENOXAPARIN 40MG/0.4ML SYR SUBCUT SCH (08:30)
[2022-06-26] MEDS: INSULIN LISPRO 100 UNITS/ML SUBCUT SCH ×4 (08:32→22:04)
[2022-06-26 12:00] VITALS: BP 169/97
[2022-06-26 16:00] VITALS: BP 153/51
[2022-06-26 16:10] LABS: CREATINE KINASE MB FRACTION 2.4 ng/mL (0.5-3.6)
[2022-06-26] MEDS ORDERED: NALOXONE HCL 0.4MG/ML VIAL IV PRN (18:15)
[2022-06-26 20:00] VITALS: BP 184/64
[2022-06-26] MEDS: HYDRALAZINE HCL 50MG TABLET PO SCH (22:01)
[2022-06-26 22:27] LABS: PROTHROMBIN TIME 10.7 sec (9.6-11.0)
[2022-06-26 22:41] LABS: CREATINE KINASE MB FRACTION 2.8 ng/mL (0.5-3.6)
[2022-06-27] VITALS (21 sets, daily range): BP systolic 117–221; BP diastolic 50–84
[2022-06-27] MEDS: HYDRALAZINE HCL 50MG TABLET PO SCH (05:37)
[2022-06-27] MEDS: BLOOD SUGAR DIAGNOSTIC STRIP TEST SCH ×2 (06:09→13:38)
[2022-06-27] MEDS ORDERED: LIDOCAINE HCL/PF 1% 10 MG/ML 5ML VIAL ONE ×2 (07:04→07:38)
[2022-06-27] MEDS ORDERED: FENTANYL CITRATE/PF 50MCG/ML 2ML VIAL ONE (07:04)
[2022-06-27] MEDS ORDERED: HEPARIN 1000 UNITS/ML 10ML ONE (07:24)
[2022-06-27] MEDS ORDERED: CEFAZOLIN 1000MG PREMIX 50 ML IV NR (08:00)
[2022-06-27] MEDS ORDERED: IOHEXOL-300 50 ML BOTTLE IV ONE (08:02)
[2022-06-27] MEDS ORDERED: FENTANYL CITRATE/PF 50MCG/ML 2ML VIAL IV ONE (08:15)
[2022-06-27] MEDS: INSULIN LISPRO 100 UNITS/ML SUBCUT SCH ×2 (09:08→13:38)
[2022-06-27] MEDS: ENOXAPARIN 40MG/0.4ML SYR SUBCUT SCH (09:09)
[2022-06-27] MEDS: THIAMINE HCL 100MG TABLET PO SCH (09:09)
[2022-06-27] MEDS: ASPIRIN 81MG EC TABLET PO SCH (09:09)
[2022-06-27] MEDS: CLONIDINE 0.1MG TABLET PO PRN (09:10)
[2022-06-27] MEDS ORDERED: AMLODIPINE 10MG TABLET PO SCH (09:30)
[2022-06-27] MEDS: HYDRALAZINE HCL 100MG TABLET PO SCH ×2 (09:32→14:00)
[2022-06-27] MEDS ORDERED: HYDR100T26 PO (13:17)
[2022-06-27] MEDS ORDERED: ATORVASTATIN CALCIUM 40MG TABLET PO SCH (21:00)
== END 2022-06-27 18:00 | disposition home or self-care (01) | DRG 304 ==
LOC: ER 16:02 → ENRESERV 23:15 → 7WST 23:47
PROVIDERS: ADMIT Internal Medicine Nephrology; ATTEND Internal Medicine Nephrology
PROC: 5A1D70Z Performance of Urinary Filtration, Intermittent, Less than 6 Hours Per Day (ICD-10-PCS; 2022-06-26)
PROC: 0J2SXYZ Change Other Device in Head and Neck Subcutaneous Tissue and Fascia, External Approach (ICD-10-PCS; principal; 2022-06-27)
PROC: 5A1D70Z Performance of Urinary Filtration, Intermittent, Less than 6 Hours Per Day (ICD-10-PCS; 2022-06-27)
DX: I16.0 Hypertensive urgency (principal); N18.6 End stage renal disease; T82.41XA Breakdown (mechanical) of vascular dialysis catheter, initial encounter; E44.1 Mild protein-calorie malnutrition; Z68.42 Body mass index [BMI] 45.0-49.9, adult; I50.30 Unspecified diastolic (congestive) heart failure; Z20.822 Contact with and (suspected) exposure to COVID-19; I13.2 Hypertensive heart and chronic kidney disease with heart failure and with stage 5 chronic kidney disease, or end stage renal disease; I25.10 Atherosclerotic heart disease of native coronary artery without angina pectoris; J44.9 Chronic obstructive pulmonary disease, unspecified; E11.22 Type 2 diabetes mellitus with diabetic chronic kidney disease; E11.65 Type 2 diabetes mellitus with hyperglycemia; E66.01 Morbid (severe) obesity due to excess calories; R07.89 Other chest pain; Z87.891 Personal history of nicotine dependence; Z99.2 Dependence on renal dialysis; Z88.8 Allergy status to other drugs, medicaments and biological substances; Z79.899 Other long term (current) drug therapy; Y83.8 Other surgical procedures as the cause of abnormal reaction of the patient, or of later complication, without mention of misadventure at the time of the procedure; Y92.89 Other specified places as the place of occurrence of the external cause
CPT/HCPCS: 36415; 36581; 71045; 77001; 80048; 80053; 82550; 82553; 82962; 83036; 83735; 83880; 84100; 84484; 85025; 87426; 93005; 93306; 99152; 99153; 99285; C1750; C1769; J0690; J1644; J1650; J1815; J2060; J3010; J3490; Q9967; G0500

== ENCOUNTER 2024-04-23 20:24 | Inpatient (IN) | payer MEDICARE, MEDICAID ==
[~2024-04-23] VITALS: Ht 170.2 cm; Wt 118.4 kg
[~2024-04-23 20:24] MED LIST changes: +ALBU18HF2 IH; +AMLO10TA80 PO; +ASPI-1160 PO; +ASPI-864 PO; +FOLI-43 PO; +GLIP10TA10 PO; +HYDR100T26 PO; +HYDR25TA78 PO; +INSASP SUBCUT; +METO25TA6 PO; +METO5TAB2 PO; +NITR0.4T49 SL; +SEMA0.258 SUBCUT; +SEVE800T8 PO
[2024-04-23 20:29] VITALS: O2SAT 98
[2024-04-23] MEDS: ACETAMINOPHEN 325MG TABLET PO STA (21:56)
[2024-04-23] MEDS: ASPIRIN 81MG TABLET PO ONE (21:57)
[2024-04-23 23:04] LABS: BASOPHILS % 0.8 % (0.0-2.0); EOSINOPHILS % 3.2 % (0.0-5.0); HEMATOCRIT. 35.2 % (36.0-48.0); HEMOGLOBIN. 11.2 g/dL (12.0-16.0); LYMPHOCYTES % 18.1 % (20.0-50.0); MEAN CORPUSCULAR HEMOGLOBIN 25.8 pg (28.0-32.0); MEAN CORPUSCULAR HGB CONC 31.8 g/dL (31.0-37.0); MEAN CORPUSCULAR VOLUME 81.1 fL (81.0-99.0); MEAN PLATELET VOLUME 8.4 fl (7.4-10.4); MONOCYTES % 13.7 % (2.0-8.0); NEUTROPHILS % 64.2 % (40.0-76.0); PLATELET 116 x1000/uL (130-400); RED BLOOD CELL COUNT 4.34 mill/uL (4.2-5.4); RED CELL DISTRIBUTION WIDTH 23.7 % (11.6-14.6); WHITE BLOOD COUNT 4.2 x1000/uL (4.5-11.0)
[2024-04-23 23:05] LABS: ADD RBC MORPHOLOGY YES; DIFFERENTIAL COMMENT 1
[2024-04-23 23:14] LABS: CHLORIDE 102 mEq/L (98-107); POTASSIUM 4.3 mEq/L (3.5-5.1); SODIUM 137 mEq/L (136-145)
[2024-04-23 23:15] LABS: CALCIUM 9.4 mg/dL (8.7-10.4); CARBON DIOXIDE 30 mEq/L (21-32)
[2024-04-23] MEDS: ACETAMINOPHEN 325MG TABLET PO ONE (23:15)
[2024-04-23 23:20] LABS: GLUCOSE 171 mg/dL (70-105); UREA NITROGEN BLOOD 36 mg/dL (9-23)
[2024-04-23 23:21] LABS: ANISOCYTOSIS 2+; PLATELET ESTIMATE DECREASED; TROPONIN I HIGH SENSITIVITY 33 ng/L (3.0-34)
[2024-04-23 23:22] LABS: CREATININE 5.9 mg/dL (0.6-1.0)
[2024-04-24] MEDS: HYDRALAZINE 20MG/ML VIAL IV ONE (04:30)
[2024-04-24] MEDS ORDERED: MAGNESIUM/ALUMINUM HYDROXIDE/SIMETHICONE 30ML UDC PO PRN (05:00)
[2024-04-24] MEDS ORDERED: HYDROCODONE/ACETAMINOPHEN 5/325MG TABLET PO PRN (05:00)
[2024-04-24] MEDS ORDERED: DOCUSATE SODIUM 100MG CAPSULE PO PRN (05:00)
[2024-04-24] MEDS ORDERED: ACETAMINOPHEN 325MG TABLET PO PRN (05:00)
[2024-04-24] MEDS ORDERED: ONDANSETRON HCL 4MG/2ML INJ IV PRN (05:00)
[2024-04-24] MEDS ORDERED: NALOXONE HCL 0.4MG/ML VIAL IV PRN (05:30)
[2024-04-24] MEDS ORDERED: HYDR50TA39 PO (05:31)
[2024-04-24] MEDS: HYDRALAZINE HCL 50MG TABLET PO SCH (06:00)
[2024-04-24] MEDS ORDERED: DEXTROSE 50% WATER 50ML SYRINGE IV PRN (06:15)
[2024-04-24] MEDS: HYDRALAZINE HCL 25MG TABLET PO SCH (07:35)
[2024-04-24] MEDS: IBUPROFEN 600MG TABLET PO NR (07:36)
[2024-04-24] MEDS: INSULIN LISPRO 100 UNITS/ML SUBCUT SCH (08:20)
[2024-04-24] MEDS: BLOOD SUGAR DIAGNOSTIC STRIP TEST SCH (08:23)
[2024-04-24] MEDS: AMLODIPINE 10MG TABLET PO SCH (08:37)
[2024-04-24] MEDS: ASPIRIN 81MG EC TABLET PO SCH (08:37)
[2024-04-24] MEDS ORDERED: LIDOCAINE HCL 1% 10 MG/ML 10ML VIAL ONE (09:12)
[2024-04-24] MEDS: CLONIDINE 0.1MG TABLET PO PRN (11:04)
[2024-04-24 11:12] VITALS: BP 167/38; PULSE 79; RESP 18; TEMP 36.7516
[2024-04-24] MEDS ORDERED: CALC667T2 PO (11:42)
[2024-04-24] MEDS ORDERED: SEMA0.258 (11:42)
[2024-04-24] MEDS ORDERED: GLIP10TA10 PO (11:42)
[2024-04-24 12:00] VITALS: BP 108/68; PULSE 72; RESP 19; TEMP 36.16956; O2SAT 100
[2024-04-24 16:00] VITALS: BP 117/45; PULSE 65; RESP 17; TEMP 36.05844; O2SAT 98
[2024-04-24 20:00] VITALS: BP 170/63; PULSE 71; RESP 19; TEMP 36.50292; O2SAT 98
[2024-04-24 20:59] LABS: HEMATOCRIT 35.1 % (36.0-48.0); HEMOGLOBIN 10.9 g/dL (12.0-16.0); MEAN CORPUSCULAR HEMOGLOBIN 25.4 pg (28.0-32.0); MEAN CORPUSCULAR VOLUME 82.1 fL (81.0-99.0); PLATELET 134 x1000/uL (130-400); RED BLOOD CELL COUNT 4.28 mill/uL (4.2-5.4); RED CELL DISTRIBUTION WIDTH 23.9 % (11.6-14.6)
[2024-04-24 21:10] LABS: CARBON DIOXIDE 27 mEq/L (21-32)
[2024-04-24 21:11] LABS: CALCIUM 9.6 mg/dL (8.7-10.4)
[2024-04-24 21:14] LABS: IRON 49 ug/dL (50-170)
[2024-04-24 21:17] LABS: CREATINE KINASE 84 IU/L (34-145); PHOSPHORUS 5.3 mg/dL (2.5-4.9); TOTAL IRON BINDING CAPACITY 238 ug/dl (250-425); TROPONIN I HIGH SENSITIVITY 30 ng/L (3.0-34)
[2024-04-24 21:18] LABS: FERRITIN 1474 ng/mL (10-291)
[2024-04-24 21:19] LABS: FOLIC ACID (FOLATE) SERUM 7.53 ng/mL (>5.38); VITAMIN B12 SERUM 635 pg/mL (211-911)
[2024-04-24 21:29] LABS: GLUCOSE 228 mg/dL (70-105)
[2024-04-24 21:30] LABS: CREATINE KINASE MB FRACTION 3.1 ng/mL (0.5-3.6); TROPONIN I HIGH SENSITIVITY 28 ng/L (3.0-34); UREA NITROGEN BLOOD 41 mg/dL (9-23)
[2024-04-24 21:31] LABS: ALANINE AMINOTRANSFERASE < 7 IU/L (10-49); ALBUMIN 3.9 g/dL (3.2-4.8); ASPARTATE AMINOTRANSFERASE 15 IU/L (<34); CHLORIDE 102 mEq/L (98-107); CREATINE KINASE 82 IU/L (34-145); POTASSIUM 4.7 mEq/L (3.5-5.1); SODIUM 135 mEq/L (136-145)
[2024-04-24 21:32] LABS: BILIRUBIN TOTAL 0.3 mg/dL (0.1-1.0); PROTEIN TOTAL 7.2 g/dL (6.0-8.3)
[2024-04-24 21:34] LABS: CREATININE 6.3 mg/dL (0.6-1.0)
[2024-04-24] MEDS: MELATONIN 3MG TABLET PO PRN (22:17)
[2024-04-24] MEDS: FAMOTIDINE 20MG TABLET PO SCH (22:18)
[2024-04-24] MEDS: IPRATROPIUM/ALBUTEROL 0.5-3(2.5)MG/3ML NEB HHN PRN (22:20)
[2024-04-24 22:21] VITALS: PULSE 71; RESP 18
[2024-04-25 03:51] VITALS: PULSE 78; RESP 18
[2024-04-25 08:00] VITALS: BP 168/88; PULSE 72; RESP 19; TEMP 36.05844; O2SAT 95
[2024-04-25] MEDS: PANTOT AC/MIN OIL/PET HY-PHL OINT (AQUAPHOR) TOP SCH (11:00)
[2024-04-25 12:00] VITALS: BP 104/50; PULSE 72; RESP 18; TEMP 36.114; O2SAT 95
[2024-04-25 15:25] LABS: POTASSIUM 4.7 mEq/L (3.5-5.1)
[2024-04-25 15:26] LABS: CALCIUM 9.8 mg/dL (8.7-10.4)
[2024-04-25 15:33] LABS: CREATINE KINASE MB FRACTION 3.2 ng/mL (0.5-3.6)
[2024-04-25 15:37] LABS: T4 FREE 1.17 ng/dL (0.89-1.76); THYROID STIMULATING HORMONE 0.62 uIU/mL (0.55-4.78)
[2024-04-25 15:44] LABS: CREATININE 6.6 mg/dL (0.6-1.0)
[2024-04-25 16:00] VITALS: BP 139/46; PULSE 73; RESP 15; TEMP 36.44736; O2SAT 100
[2024-04-25 16:19] LABS: BASOPHILS % 0.9 % (0.0-2.0); EOSINOPHILS % 4.2 % (0.0-5.0); HEMATOCRIT. 36.5 % (36.0-48.0); HEMOGLOBIN. 11.2 g/dL (12.0-16.0); LYMPHOCYTES % 16.7 % (20.0-50.0); MEAN CORPUSCULAR HEMOGLOBIN 24.9 pg (28.0-32.0); MEAN CORPUSCULAR HGB CONC 30.6 g/dL (31.0-37.0); MEAN CORPUSCULAR VOLUME 81.3 fL (81.0-99.0); MEAN PLATELET VOLUME 8.5 fl (7.4-10.4); MONOCYTES % 12.1 % (2.0-8.0); NEUTROPHILS % 66.1 % (40.0-76.0); PLATELET 137 x1000/uL (130-400); RED BLOOD CELL COUNT 4.49 mill/uL (4.2-5.4); RED CELL DISTRIBUTION WIDTH 23.9 % (11.6-14.6)
[2024-04-25 16:24] LABS: DIFFERENTIAL COMMENT 1
[2024-04-25 20:00] VITALS: BP 180/77; PULSE 78; RESP 19; TEMP 36.44736; O2SAT 100
[2024-04-25] MEDS: IBUPROFEN 600MG TABLET PO PRN (21:40)
[2024-04-25] MEDS: GUAIFENESIN 200MG/10ML SUGAR FREE UDC PO PRN (23:20)
[2024-04-26] VITALS (7 sets, daily range): BP systolic 95–184; BP diastolic 45–80; PULSE 66–87; RESP 18–20; TEMP 30.558–36.6696; O2SAT 98–100
[2024-04-27] VITALS (14 sets, daily range): BP systolic 117–170; BP diastolic 48–86; PULSE 72–85; RESP 16–20; TEMP 35.78064–36.55848; O2SAT 95–100
[2024-04-27] MEDS: ACETAMINOPHEN 325MG TABLET PO PRN (04:00)
[2024-04-27 12:35] LABS: BASOPHILS % 1.2 % (0.0-2.0); EOSINOPHILS % 4.7 % (0.0-5.0); HEMOGLOBIN. 10.1 g/dL (12.0-16.0); LYMPHOCYTES % 16.7 % (20.0-50.0); MEAN CORPUSCULAR HEMOGLOBIN 24.9 pg (28.0-32.0); MEAN CORPUSCULAR HGB CONC 30.7 g/dL (31.0-37.0); MEAN CORPUSCULAR VOLUME 81.1 fL (81.0-99.0); MEAN PLATELET VOLUME 8.5 fl (7.4-10.4); MONOCYTES % 10.6 % (2.0-8.0); NEUTROPHILS % 66.8 % (40.0-76.0); PLATELET 147 x1000/uL (130-400); RED BLOOD CELL COUNT 4.07 mill/uL (4.2-5.4); RED CELL DISTRIBUTION WIDTH 23.6 % (11.6-14.6); WHITE BLOOD COUNT 4.1 x1000/uL (4.5-11.0)
[2024-04-27 12:42] LABS: DIFFERENTIAL COMMENT 1
[2024-04-27 12:44] LABS: POTASSIUM 4.1 mEq/L (3.5-5.1)
[2024-04-27 12:46] LABS: CALCIUM 9.1 mg/dL (8.7-10.4)
[2024-04-27] MEDS: NIFEDIPINE XL 60MG TAB PO SCH (12:58)
[2024-04-27 12:59] LABS: CREATININE 5.7 mg/dL (0.6-1.0)
[2024-04-27] MEDS: ENOXAPARIN 40MG/0.4ML SYR SUBCUT SCH (17:23)
[2024-04-28] VITALS: BP 151/48; PULSE 86; RESP 19; TEMP 36.72516; O2SAT 98
[2024-04-28] MEDS: PREDNISONE 10MG TABLET PO SCH (01:13)
[2024-04-28 04:00] VITALS: PULSE 92; RESP 19; TEMP 36.61404; O2SAT 99
[2024-04-28 07:15] LABS: POTASSIUM 5.1 mEq/L (3.5-5.1)
[2024-04-28 07:17] LABS: CALCIUM 9.1 mg/dL (8.7-10.4)
[2024-04-28 07:45] LABS: BASOPHILS % 0.9 % (0.0-2.0); EOSINOPHILS % 0.8 % (0.0-5.0); HEMATOCRIT. 33.4 % (36.0-48.0); HEMOGLOBIN. 10.3 g/dL (12.0-16.0); LYMPHOCYTES % 9.2 % (20.0-50.0); MEAN CORPUSCULAR HEMOGLOBIN 25.1 pg (28.0-32.0); MEAN CORPUSCULAR HGB CONC 30.9 g/dL (31.0-37.0); MEAN CORPUSCULAR VOLUME 81.1 fL (81.0-99.0); MEAN PLATELET VOLUME 8.6 fl (7.4-10.4); MONOCYTES % 2.8 % (2.0-8.0); NEUTROPHILS % 86.3 % (40.0-76.0); PLATELET 153 x1000/uL (130-400); RED BLOOD CELL COUNT 4.12 mill/uL (4.2-5.4); RED CELL DISTRIBUTION WIDTH 24.1 % (11.6-14.6); WHITE BLOOD COUNT 4.7 x1000/uL (4.5-11.0)
[2024-04-28 07:58] LABS: ADD RBC MORPHOLOGY NO; DIFFERENTIAL COMMENT 1
[2024-04-28 08:00] VITALS: BP 160/62; PULSE 91; RESP 20; TEMP 36.61404; O2SAT 95
[2024-04-28] MEDS ORDERED: IBUP-2029 PO (11:19)
[2024-04-28] MEDS ORDERED: PRED10TA23 PO (11:30)
[2024-04-28 12:00] VITALS: BP 179/67; PULSE 87; RESP 20; TEMP 36.55848; O2SAT 98
[2024-04-28 16:00] VITALS: BP 139/53; PULSE 80; RESP 20; TEMP 36.3918; O2SAT 100
[2024-04-28 20:00] VITALS: BP 177/63; PULSE 85; RESP 18; TEMP 36.72516; O2SAT 99
[2024-04-29] VITALS (11 sets, daily range): BP systolic 123–178; BP diastolic 46–82; PULSE 76–91; RESP 16–20; TEMP 35.89176–36.78072; O2SAT 95–100
[2024-04-29] MEDS: DIPHENHYDRAMINE 25MG CAPSULE PO NR (05:03)
[2024-04-29 06:22] LABS: BASOPHILS % 0.5 % (0.0-2.0); EOSINOPHILS % 0.1 % (0.0-5.0); HEMOGLOBIN. 10.5 g/dL (12.0-16.0); LYMPHOCYTES % 12.4 % (20.0-50.0); MEAN CORPUSCULAR HGB CONC 30.9 g/dL (31.0-37.0); MEAN CORPUSCULAR VOLUME 81.1 fL (81.0-99.0); MEAN PLATELET VOLUME 8.6 fl (7.4-10.4); MONOCYTES % 3.9 % (2.0-8.0); NEUTROPHILS % 83.1 % (40.0-76.0); PLATELET 194 x1000/uL (130-400); RED BLOOD CELL COUNT 4.19 mill/uL (4.2-5.4); RED CELL DISTRIBUTION WIDTH 24.7 % (11.6-14.6); WHITE BLOOD COUNT 4.4 x1000/uL (4.5-11.0)
[2024-04-29 06:39] LABS: POTASSIUM 5.3 mEq/L (3.5-5.1)
[2024-04-29 06:41] LABS: CALCIUM 9.1 mg/dL (8.7-10.4)
[2024-04-29 06:45] LABS: CREATININE 7.8 mg/dL (0.6-1.0)
[2024-04-29 08:26] LABS: DIFFERENTIAL COMMENT 1
[2024-04-29 16:17] LABS: HEPATITIS B SURFACE ANTIGEN NEGATIVE (Negative)
[2024-04-29 16:37] LABS: HEPATITIS A AB IGM NEGATIVE (Negative)
[2024-04-29 16:38] LABS: HEPATITIS B CORE AB IGM NEGATIVE (Negative); HEPATITIS C AB NON REACTIVE (Neg) (Negative)
[2024-04-29] MEDS: ENOXAPARIN 30MG/0.3ML SYR SUBCUT SCH (18:03)
[2024-04-30] VITALS: BP 168/65; PULSE 84; RESP 19; TEMP 36.114; O2SAT 100
[2024-04-30 04:00] VITALS: BP 143/49; PULSE 79; RESP 19; TEMP 36.00288; O2SAT 98
[2024-04-30 08:00] VITALS: BP 145/67; PULSE 78; RESP 18; TEMP 36.28068; O2SAT 98
[2024-04-30 08:15] LABS: CREATININE 6.6 mg/dL (0.6-1.0)
[2024-04-30 08:29] LABS: HEMATOCRIT. 31.1 % (36.0-48.0); HEMOGLOBIN. 9.7 g/dL (12.0-16.0); MEAN CORPUSCULAR HEMOGLOBIN 25.3 pg (28.0-32.0); MEAN CORPUSCULAR HGB CONC 31.2 g/dL (31.0-37.0); MEAN CORPUSCULAR VOLUME 81.2 fL (81.0-99.0); MEAN PLATELET VOLUME 8.4 fl (7.4-10.4); PLATELET 171 x1000/uL (130-400); RED BLOOD CELL COUNT 3.83 mill/uL (4.2-5.4); RED CELL DISTRIBUTION WIDTH 23.8 % (11.6-14.6); WHITE BLOOD COUNT 3.9 x1000/uL (4.5-11.0)
[2024-04-30 08:50] LABS: DIFFERENTIAL COMMENT 1
[2024-04-30] MEDS: INSULIN LISPRO 100 UNITS/ML SUBCUT SCH (08:54)
[2024-04-30 10:27] VITALS: BP 145/67; PULSE 78; RESP 18; TEMP 36.28068; O2SAT 98
[2024-04-30 15:22] LABS: PLATELET ESTIMATE NORMAL
[2024-05-02] MEDS ORDERED: PREDNISONE 10MG TABLET PO SCH (09:00)
== END 2024-04-30 10:00 | disposition home or self-care (01) | DRG 557 ==
LOC: ER 20:24 → EDBEDREQTM 04-24 03:54 → EDBEDREQ 04-24 03:54 → 7EST 04-24 10:28 → MERGE 04-24 10:28
PROVIDERS: ADMIT Internal Medicine; ATTEND Internal Medicine
PROC: 05HY33Z Insertion of Infusion Device into Upper Vein, Percutaneous Approach (ICD-10-PCS; principal; 2024-04-24)
PROC: B54MZZA Ultrasonography of Right Upper Extremity Veins, Guidance (ICD-10-PCS; 2024-04-24)
PROC: 5A1D70Z Performance of Urinary Filtration, Intermittent, Less than 6 Hours Per Day (ICD-10-PCS; 2024-04-26)
PROC: 5A1D70Z Performance of Urinary Filtration, Intermittent, Less than 6 Hours Per Day (ICD-10-PCS; 2024-04-27)
PROC: 5A1D70Z Performance of Urinary Filtration, Intermittent, Less than 6 Hours Per Day (ICD-10-PCS; 2024-04-29)
DX: M75.31 Calcific tendinitis of right shoulder (principal); N18.6 End stage renal disease; I13.2 Hypertensive heart and chronic kidney disease with heart failure and with stage 5 chronic kidney disease, or end stage renal disease; D61.818 Other pancytopenia; I50.30 Unspecified diastolic (congestive) heart failure; Z68.41 Body mass index [BMI] 40.0-44.9, adult; W05.0XXA Fall from non-moving wheelchair, initial encounter; I16.0 Hypertensive urgency; E11.22 Type 2 diabetes mellitus with diabetic chronic kidney disease; E11.42 Type 2 diabetes mellitus with diabetic polyneuropathy; I34.0 Nonrheumatic mitral (valve) insufficiency; J44.89 Other specified chronic obstructive pulmonary disease; M17.0 Bilateral primary osteoarthritis of knee; L85.3 Xerosis cutis; E66.01 Morbid (severe) obesity due to excess calories; M20.42 Other hammer toe(s) (acquired), left foot; M16.0 Bilateral primary osteoarthritis of hip; M19.022 Primary osteoarthritis, left elbow; M19.021 Primary osteoarthritis, right elbow; M19.012 Primary osteoarthritis, left shoulder; M19.011 Primary osteoarthritis, right shoulder; M20.41 Other hammer toe(s) (acquired), right foot; E78.5 Hyperlipidemia, unspecified; L84 Corns and callosities; R26.9 Unspecified abnormalities of gait and mobility; Z79.899 Other long term (current) drug therapy; Z99.2 Dependence on renal dialysis; Z88.1 Allergy status to other antibiotic agents; Z99.3 Dependence on wheelchair; Z83.3 Family history of diabetes mellitus; Z91.013 Allergy to seafood; Z88.5 Allergy status to narcotic agent; Y93.89 Activity, other specified; Y92.89 Other specified places as the place of occurrence of the external cause; Y99.8 Other external cause status; Z87.891 Personal history of nicotine dependence; Z88.8 Allergy status to other drugs, medicaments and biological substances; Z82.49 Family history of ischemic heart disease and other diseases of the circulatory system
CPT/HCPCS: 36415; 36573; 71045; 73030; 73630; 80048; 80053; 80061; 82040; 82550; 82553; 82607; 82728; 82746; 82962; 83036; 83540; 83550; 83880; 83970; 84075; 84100; 84145; 84439; 84443; 84484; 85025; 85027; 85379; 86705; 86709; 87340; 90935; 93005; 93880; 93970; 94640; 97162; 97166; 97535; 99285; C1725; J1650; J1815; J3490; J7512; Q0163

== ENCOUNTER 2024-09-10 20:56 | Inpatient (IN) | payer MEDICARE, MEDICAID ==
[~2024-09-10] VITALS: Ht 165.1 cm; Wt 79.8 kg
[~2024-09-10 20:56] MED LIST changes: -ALBU18HF2 IH; +ALBU18HF2 PO; -AMLO5TAB88 MT; -ASPI-1160 PO; -ASPI-1497 MT; +CEPH500T MT; -DOCU-138 MT; -FLONASE; -FOLI-43 MT; -FOLI-43 PO; -GABA-529 PO; -GLIP10TA10 PO; +GLIP10TA17 PO; -HUMALOG; -HYDR100T26 PO; -LANTUS; -LORA-250 PO; -METO25TA6 PO; -METO5TAB2 PO; -NITR0.4T49 SL; -NORCO; +OZEMPIC SQ; -SEMA0.258 SUBCUT; -TIZA2CAP7 MT
[2024-09-10] MEDS ORDERED: DICYCLOMINE 10 MG/5 ML ORAL SYR PO STA (21:05)
[2024-09-11] MEDS: MAGNESIUM/ALUMINUM HYDROXIDE/SIMETHICONE 30ML UDC PO STA (03:01)
[2024-09-11] MEDS: MAGNESIUM/ALUMINUM HYDROXIDE/SIMETHICONE 30ML UDC PO NR (03:01)
[2024-09-11] MEDS: DICYCLOMINE HCL 10MG CAPSULE PO NR (03:01)
[2024-09-11 06:30] LABS: BASOPHILS % 1.5 % (0.0-2.0); EOSINOPHILS % 3.7 % (0.0-5.0); HEMATOCRIT. 36.7 % (36.0-48.0); HEMOGLOBIN. 11.2 g/dL (12.0-16.0); LYMPHOCYTES % 17.8 % (20.0-50.0); MEAN CORPUSCULAR HEMOGLOBIN 24.5 pg (28.0-32.0); MEAN CORPUSCULAR HGB CONC 30.5 g/dL (31.0-37.0); MEAN CORPUSCULAR VOLUME 80.2 fL (81.0-99.0); MEAN PLATELET VOLUME 8.3 fl (7.4-10.4); MONOCYTES % 9.9 % (2.0-8.0); NEUTROPHILS % 67.1 % (40.0-76.0); PLATELET 189 x1000/uL (130-400); RED BLOOD CELL COUNT 4.58 mill/uL (4.2-5.4); RED CELL DISTRIBUTION WIDTH 24.6 % (11.6-14.6); WHITE BLOOD COUNT 5.5 x1000/uL (4.5-11.0)
[2024-09-11 06:32] LABS: ADD RBC MORPHOLOGY YES; DIFFERENTIAL COMMENT 1
[2024-09-11 06:40] LABS: PROTHROMBIN TIME 10.9 sec (9.6-11.0)
[2024-09-11 07:02] LABS: POTASSIUM 4.4 mEq/L (3.5-5.1)
[2024-09-11 07:03] LABS: CALCIUM 9.5 mg/dL (8.7-10.4)
[2024-09-11 07:22] LABS: CREATININE 6.4 mg/dL (0.6-1.0)
[2024-09-11 07:30] LABS: ANISOCYTOSIS 4+; PLATELET ESTIMATE NORMAL
[2024-09-11] MEDS ORDERED: DOCUSATE SODIUM 100MG CAPSULE PO PRN (08:15)
[2024-09-11] MEDS ORDERED: ACETAMINOPHEN 325MG TABLET PO PRN (08:15)
[2024-09-11] MEDS ORDERED: ONDANSETRON HCL 4MG/2ML INJ IV PRN (08:15)
[2024-09-11] MEDS ORDERED: DEXTROSE 50% WATER 50ML SYRINGE IV PRN (08:30)
[2024-09-11 08:37] LABS: CLARITY URINE CLEAR (CLEAR); COLOR URINE YELLOW (YELLOW); PH URINE >=9.0 (4.5-8.0); SPECIFIC GRAVITY URINE 1.013 (1.005-1.030)
[2024-09-11 08:38] LABS: GLUCOSE URINE NEGATIVE (NEGATIVE); KETONES URINE NEGATIVE (NEGATIVE); LEUKOCYTE ESTERASE URINE NEGATIVE (NEGATIVE); NITRITE URINE NEGATIVE (NEGATIVE); OCCULT BLOOD URINE NEGATIVE (NEGATIVE); PROTEIN URINE 3+ (NEGATIVE); UROBILINOGEN URINE 0.2 E.U./dL (0.2-1.0)
[2024-09-11 08:42] LABS: BACTERIA URINE FEW; RBC URINE 0-2 /hpf (0-2); SQUAMOUS EPITHELIAL CELL URINE FEW /lpf (RARE/1+); WBC URINE 0-2 /hpf (0-2); YEAST URINE NONE SEEN
[2024-09-11 13:00] VITALS: BP 137/82; PULSE 86; RESP 18; TEMP 36.8072
[2024-09-11 14:12] LABS: *AMPHETAMINES SCREEN URINE NEGATIVE (NEGATIVE); *BARBITURATES SCREEN URINE NEGATIVE (NEGATIVE); *BENZODIAZEPINES SCREEN URINE NEGATIVE (NEGATIVE)
[2024-09-11 14:13] LABS: *COCAINE SCREEN URINE NEGATIVE (NEGATIVE)
[2024-09-11 14:14] LABS: CANNABINOID URINE SCREEN NEGATIVE (NEGATIVE); ECSTASY MDMA SCREEN URINE NEGATIVE (NEGATIVE); METHADONE URINE SCREEN NEGATIVE (NEGATIVE); OPIATES URINE SCREEN NEGATIVE (NEGATIVE); PHENCYCLIDINE URINE SCREEN NEGATIVE (NEGATIVE)
[2024-09-11 15:30] VITALS: BP 201/48; PULSE 76; RESP 18; TEMP 36.61404; O2SAT 100
[2024-09-11 15:48] LABS: TRIGLYCERIDE 99 mg/dL (0-150)
[2024-09-11 15:49] LABS: LDL CHOLESTEROL 86 mg/dL (5-100)
[2024-09-11 15:50] LABS: ALANINE AMINOTRANSFERASE 41 IU/L (10-49); ALBUMIN 3.9 g/dL (3.2-4.8); ASPARTATE AMINOTRANSFERASE 34 IU/L (<34); BILIRUBIN DIRECT 0.2 mg/dL (<=3.0); BILIRUBIN TOTAL 0.4 mg/dL (0.1-1.0); CHOLESTEROL 146 mg/dL (<200); HDL CHOLESTEROL 34 mg/dL (>65); PHOSPHORUS 4.6 mg/dL (2.5-4.9); PROTEIN TOTAL 7.3 g/dL (6.0-8.3)
[2024-09-11] MEDS: INSULIN LISPRO 100 UNITS/ML SUBCUT SCH (17:16)
[2024-09-11] MEDS: BLOOD SUGAR DIAGNOSTIC STRIP TEST SCH (17:16)
[2024-09-11 20:00] VITALS: BP 193/73; PULSE 78; RESP 19; TEMP 35.78064; O2SAT 98
[2024-09-11] MEDS: HYDRALAZINE HCL 50MG TABLET PO SCH (20:41)
[2024-09-11] MEDS: LORAZEPAM 0.5MG TABLET PO PRN (20:42)
[2024-09-11] MEDS: ENOXAPARIN 30MG/0.3ML SYR SUBCUT SCH (20:46)
[2024-09-11] MEDS: IPRATROPIUM/ALBUTEROL 0.5-3(2.5)MG/3ML NEB HHN PRN (22:15)
[2024-09-11 22:18] VITALS: PULSE 76; RESP 17; O2SAT 96
[2024-09-11] MEDS: CLONIDINE 0.1MG TABLET PO PRN (22:33)
[2024-09-12] VITALS (11 sets, daily range): BP systolic 110–219; BP diastolic 35–77; PULSE 65–78; RESP 18–20; TEMP 36.114–36.78072; O2SAT 96–100
[2024-09-12] MEDS: HYDRALAZINE HCL 10MG TABLET PO NR (01:06)
[2024-09-12 08:01] LABS: POTASSIUM 5.2 mEq/L (3.5-5.1)
[2024-09-12] MEDS: PANTOPRAZOLE 40MG DR TABLET PO SCH (08:12)
[2024-09-12 08:15] LABS: EOSINOPHILS % 3.6 % (0.0-5.0); HEMATOCRIT. 33.8 % (36.0-48.0); HEMOGLOBIN. 10.4 g/dL (12.0-16.0); LYMPHOCYTES % 10.4 % (20.0-50.0); MEAN CORPUSCULAR HEMOGLOBIN 24.9 pg (28.0-32.0); MEAN CORPUSCULAR HGB CONC 30.9 g/dL (31.0-37.0); MEAN CORPUSCULAR VOLUME 80.7 fL (81.0-99.0); MEAN PLATELET VOLUME 8.2 fl (7.4-10.4); PLATELET 170 x1000/uL (130-400); RED BLOOD CELL COUNT 4.18 mill/uL (4.2-5.4); RED CELL DISTRIBUTION WIDTH 23.9 % (11.6-14.6)
[2024-09-12] MEDS: NIFEDIPINE XL 30MG TAB PO SCH (08:24)
[2024-09-12 08:34] LABS: DIFFERENTIAL COMMENT 1
[2024-09-12 08:48] LABS: CREATININE 7.1 mg/dL (0.6-1.0)
[2024-09-12] MEDS: HYDRALAZINE 20MG/ML VIAL IV PRN (20:12)
[2024-09-13] VITALS: BP 103/63; PULSE 74; RESP 18; TEMP 37.16964; O2SAT 96
[2024-09-13 00:17] VITALS: PULSE 76; RESP 18; O2SAT 97
[2024-09-13 04:00] VITALS: BP 188/59; PULSE 80; RESP 18; TEMP 37.11408; O2SAT 100
[2024-09-13 08:00] VITALS: BP 130/45; PULSE 79; RESP 18; TEMP 37.11408; O2SAT 95
[2024-09-13 12:00] VITALS: BP 181/45; PULSE 72; RESP 18; TEMP 36.61404; O2SAT 98
[2024-09-13 13:15] LABS: BASOPHILS % 0.8 % (0.0-2.0); EOSINOPHILS % 2.1 % (0.0-5.0); HEMATOCRIT. 33.4 % (36.0-48.0); HEMOGLOBIN. 10.2 g/dL (12.0-16.0); LYMPHOCYTES % 9.5 % (20.0-50.0); MEAN CORPUSCULAR HEMOGLOBIN 24.7 pg (28.0-32.0); MEAN CORPUSCULAR HGB CONC 30.7 g/dL (31.0-37.0); MEAN CORPUSCULAR VOLUME 80.3 fL (81.0-99.0); MEAN PLATELET VOLUME 8.5 fl (7.4-10.4); MONOCYTES % 8.4 % (2.0-8.0); NEUTROPHILS % 79.2 % (40.0-76.0); PLATELET 162 x1000/uL (130-400); RED BLOOD CELL COUNT 4.15 mill/uL (4.2-5.4); RED CELL DISTRIBUTION WIDTH 24.2 % (11.6-14.6); WHITE BLOOD COUNT 7.7 x1000/uL (4.5-11.0)
[2024-09-13 13:25] LABS: DIFFERENTIAL COMMENT 1
[2024-09-13] MEDS ORDERED: HYDR50TA39 PO (14:24)
[2024-09-13] MEDS ORDERED: NIFE-33 PO (14:24)
[2024-09-13 16:43] LABS: POTASSIUM 4.8 mEq/L (3.5-5.1)
[2024-09-13 16:44] LABS: CALCIUM 9.1 mg/dL (8.7-10.4)
[2024-09-13 16:54] LABS: CREATININE 6.7 mg/dL (0.6-1.0)
[2024-09-13 20:00] VITALS: BP 179/64; PULSE 80; RESP 18; TEMP 36.6696; O2SAT 98
[2024-09-13] MEDS: DOXAZOSIN MESYLATE 4MG TABLET PO SCH (23:18)
[2024-09-14] VITALS (16 sets, daily range): BP systolic 112–184; BP diastolic 44–77; PULSE 68–79; RESP 18–19; TEMP 36.33624–36.83628; O2SAT 96–100
[2024-09-14] MEDS: GUAIFENESIN 200MG/10ML SUGAR FREE UDC PO PRN (00:49)
[2024-09-14] MEDS: ACETAMINOPHEN 325MG TABLET PO PRN (10:42)
== END 2024-09-14 21:47 | disposition home or self-care (01) | DRG 640 ==
LOC: ER 21:10 → EDBEDREQTM 09-11 06:03 → EDBEDREQ 09-11 06:03 → ER 09-11 13:22 → 8WST 09-11 13:42
PROVIDERS: ADMIT Internal Medicine; ATTEND Internal Medicine
PROC: 5A1D70Z Performance of Urinary Filtration, Intermittent, Less than 6 Hours Per Day (ICD-10-PCS; principal; 2024-09-12)
PROC: 5A1D70Z Performance of Urinary Filtration, Intermittent, Less than 6 Hours Per Day (ICD-10-PCS; 2024-09-14)
DX: E87.70 Fluid overload, unspecified (principal); N18.6 End stage renal disease; N39.0 Urinary tract infection, site not specified; I16.1 Hypertensive emergency; R18.8 Other ascites; I12.0 Hypertensive chronic kidney disease with stage 5 chronic kidney disease or end stage renal disease; I25.10 Atherosclerotic heart disease of native coronary artery without angina pectoris; J44.89 Other specified chronic obstructive pulmonary disease; K21.9 Gastro-esophageal reflux disease without esophagitis; K40.90 Unilateral inguinal hernia, without obstruction or gangrene, not specified as recurrent; D63.1 Anemia in chronic kidney disease; E11.22 Type 2 diabetes mellitus with diabetic chronic kidney disease; E66.9 Obesity, unspecified; G89.29 Other chronic pain; Z79.899 Other long term (current) drug therapy; Z88.8 Allergy status to other drugs, medicaments and biological substances; Z88.1 Allergy status to other antibiotic agents; Z91.013 Allergy to seafood; Z99.2 Dependence on renal dialysis; Z99.3 Dependence on wheelchair; Z68.29 Body mass index [BMI] 29.0-29.9, adult
CPT/HCPCS: 36415; 74176; 80048; 80061; 80076; 80305; 81003; 82962; 83036; 83735; 84100; 85025; 90935; 94640; 99285; J0360; J1650; J1815